=== PATIENT | female | born 1980 | race Caucasian/White ===

== ENCOUNTER 2017-05-13 14:11 | Emergency (ER) | payer OTHER, SELFPAY ==
[2017-05-13] MEDS ORDERED: MORPHINE SULFATE 4 MG INJ IM ONE (14:32)
--- NOTE | 2017-05-13 14:40 | ERPHSYRPT ---
- History of Present Illness Time Seen by Provider: 05/13/17 14:35 Source: patient, family Exam Limitations: no limitations Patient Subjective Stated Complaint: PT REPORTS FALLING A WEEK AGO-RAD DONE AT [facility] [place] THAT FOOT IS STILL SWOLLEN ET PAINFUL- PT IS ABLE TO AMBULATE WITH WALKING BOOT ON-PT DENIES CHANGES TO S/S BUT IS TIRED OF PAIN Triage Nursing Assessment: PT PINK WARM ET [id number] VERY ANXIOUS ET TEARFUL UPON ARRIVAL-PULSES PRESENT ET STRONG Physician History: c/o pain in right ankle, twisted last week, x rays were reported negative, has an appointment with ortho on sun. c/o pain in ankle not getting relieved. Method of Injury: twisted Quality: constant Lower Extremities Pain: ankle: right Modifying Factors: Improves With: nothing, immobilization Associated Symptoms: unable to bear weight, popping sensation Allergies/Adverse Reactions: ketorolac tromethamine [From Toradol] Adverse Reaction (Verified 05/13/17 14:20) SICK TO STOMACH tramadol Adverse Reaction (Verified 05/13/17 14:20) SICK TO STOMACH Home Medications: Escitalopram Oxalate [Lexapro] 10 mg PO DAILY 01/31/16 [History] Clonazepam [Klonopin] 1 mg PO UD 05/13/17 [History] Pantoprazole Sodium [Protonix] 40 mg PO DAILY 05/13/17 [History] Hx Tetanus, Diphtheria Vaccination/Date Given: No Hx Influenza Vaccination/Date Given: No Hx Pneumococcal Vaccination/Date Given: No Immunizations Up to Date: Yes - Review of Systems Constitutional: No Symptoms Musculoskeletal: Joint Swelling (right ankle) Skin: No Symptoms Neurological: No Symptoms - Past Medical History Pertinent Past Medical History: Yes Neurological History: Migraines Psycho-Social History: Anxiety, Bipolar, Depression - Past Surgical History Past Surgical History: Yes Cardiac: No Pertinent History Female Surgical History: Section, Hysterectomy Other Surgical History: t&a - Social History Smoking Status: Current every day smoker How long have you smoked: YRS Exposure to second hand smoke: No Drug Use: none Patient Lives Alone: No - Female History Hx Last Menstrual Period: HYSTERECTOMY - Nursing Vital Signs Nursing Vital Signs: Initial Vital Signs Temperature 97.9 F 05/13/17 14:15 Pulse Rate 128 H 05/13/17 14:15 Respiratory Rate 20 05/13/17 14:15 Blood Pressure 145/95 05/13/17 14:15 O2 Sat by Pulse Oximetry 97 05/13/17 14:15 Pain Scale Pain Intensity 8 - Physical Exam General Appearance: no apparent distress Ankle Exam: right ankle: limited range of motion, pain, soft tissue tenderness, swelling SpO2: 97 Oxygen Delivery: Room Air - Course Nursing assessment & vital signs reviewed: Yes Ordered Tests: Medication Summary Generic Name Dose Route Start Last Admin Trade Name Larry PRN Reason Stop Dose Admin Morphine Sulfate 4 mg 05/13/17 14:32 Morphine Sulfate 4 Mg Inj IM 05/13/17 14:33 STAT ONE - Progress Progress: unchanged, pain not gone completely Counseled pt/family regarding: diagnosis, need for follow-up - Departure Time of Disposition: 14:41 Departure Disposition: Home Clinical Impression: Right ankle sprain Qualifiers: Encounter type: subsequent encounter Involved ligament of ankle: deltoid ligament Qualified Code(s): S93.421D - Sprain of deltoid ligament of right ankle , subsequent encounter Condition: Stable Critical Care Time: No Referrals: JAMAAL VILLAGOMEZ MD [Primary Care Provider] - Instructions: Ankle Sprain, Ankle Pain Additional Instructions: SPRAINS/STRAINS/CONTUSIONS 1. Rest the affected area as much as possible for the next few days. 2. Apply ice to the affected area for 20-30 minutes at a time, several times a day. 3. If you receive an elastic wrap, wear it only while awake for comfort and support. Re-wrap the elastic wrap if it feels too tight or too loose. 4. If swelling is present, elevate the affected part above the level of the heart for at least 2 to 3 days. 5. Use splints, slings, or crutches as instructed. 6. Watch for severe swelling, coldness, numbness, and discoloration of the fingers and toes. See your family physician or return to the emergency department if any of these are noted. Forms: Work/School Release Form Prescriptions: Naproxen 375 mg [Naprosyn 375 mg] 375 mg PO Q8H #30 tablet
[2017-05-13] MEDS ORDERED: MORPHINE SULFATE 4 MG INJ ONE (14:46)
[2017-05-13 15:11] VITALS: BP 155/94; PULSE 116; O2SAT 99
== END 2017-05-13 15:12 | disposition home or self-care (01) ==
LOC: ED 14:11
DX: S93.421D Sprain of deltoid ligament of right ankle, subsequent encounter (principal); W19.XXXD Unspecified fall, subsequent encounter
CPT/HCPCS: 96372; 99284; J2270